=== PATIENT | female | born 1975 | race Caucasian/White ===

== ENCOUNTER → 2017-03-24 | Outpatient (CLI) | payer BC ==
--- NOTE | 2017-03-27 14:58 | KCIC ---
DATE: 03/24/2017 EXAM: MAMMO KARL SCREENING BILATERAL HISTORY: Screening COMPARISON: None FINDINGS: Breast Density: HETERO The breast parenchyma Is heterogeneiously dense, which could reduce sensitivity of mammography. Breast parenchyma level C. A dominant mass or suspect calcifications is not seen in either breast. There is a small nodule in the upper and outer right breast compatible with an intramammary lymph node.. In the left breast there is a possible developing nodule. No definite abnormality is seen on the karl images in the CC plane but a possible nodule is seen superiorly on the MLO view. The finding probably reflects a fibrous ridge but a coned compression MLO view and an ML view are suggested for additional evaluation IMPRESSION: Possible developing nodule left breast. Additional imaging suggested as outlined above BI-RADS CATEGORY: 0 INCOMPLETE: NEED ADDITIONAL IMAGING EVAULATION AND/OR PRIOR MAMMOGRAMS FOR COMPARISON RECOMMENDED FOLLOW-UP: ADD ADDITIONAL IMAGING PQRS compliance statement: Patient information was entered into a reminder system with a target due date soon for the next mammogram. Mammography is a sensitive method for finding small breast cancers, but it does not detect them all and is not a substitute for careful clinical examination. A negative mammogram does not negate a clinically suspicious finding and should not result in delay in biopsying a clinically suspicious abnormality. "Our facility is accredited by the [employer] Mammography [employer]."
== END | disposition home or self-care (01) ==
LOC: KCIC MAMMO 14:44
PROVIDERS: ATTEND Specialist
DX: Z12.31 Encounter for screening mammogram for malignant neoplasm of breast (principal)
CPT/HCPCS: 77063; G0202; 77067

== ENCOUNTER → 2020-01-07 | Outpatient (CLI) | payer BC ==
--- NOTE | 2020-01-07 12:11 | KCIC ---
EXAM: Bilateral digital screening mammogram with tomosynthesis. HISTORY: 44-year-old female presents for screening mammography. TECHNIQUE: Full-field digital craniocaudal and mediolateral oblique 2D and 3D tomosynthesis images of both breasts are obtained for evaluation. Computer aided detection with [employer] software version 9.3 was applied. COMPARISON: 04/11/2017 BREAST PARENCHYMAL DENSITY: Level D - Extremely dense. FINDINGS: There is no new suspicious mass, microcalcification or region of architectural distortion. There is stable areas of benign asymmetry within the anterior inferior left breast and lateral right breast. IMPRESSION: BI-RADS Category 2: Benign finding(s). RECOMMENDATION: Annual mammography is recommended. If your mammogram demonstrates that you have dense breast tissue, which could hide abnormalities, and if you have other risk factors for breast cancer that have been identified, you might benefit from supplemental screening tests that may be suggested by your ordering physician. Dense breast tissue, in and of itself, is a relatively common condition. This information is not provided to cause undue concern, but rather to raise your awareness and to promote discussion with your physician regarding the presence of other risk factors, in addition to dense breast tissue. A report of your mammography results will be sent to you and your physician. You should contact your physician if you have any questions or concerns regarding this report. Mammography is a sensitive method for finding small breast cancers, but it does not detect them all and is not a substitute for careful clinical examination. A negative mammogram does not negate a clinically suspicious finding and should not result in delay in biopsying a clinically suspicious abnormality. PQRS compliance statement - Patient information was entered into a reminder system with a target due date for the next mammogram. "Our facility is accredited by the [employer]ammography [employer]." Electronically signed by: Juliana Troo MD (01/07/2020 12:08 PM) [email or web address]
== END | disposition home or self-care (01) ==
LOC: KCIC MAMMO 09:50
PROVIDERS: ATTEND Internal Medicine
DX: Z12.31 Encounter for screening mammogram for malignant neoplasm of breast (principal)
CPT/HCPCS: 77063; 77067

== ENCOUNTER → 2021-01-11 | Outpatient (CLI) | payer BC ==
--- NOTE | 2021-01-11 13:05 | KCIC ---
Bilateral digital screening mammograms with 3-D tomosynthesis: Reason for examination: Routine screening. Comparison is made to previous studies dated 01/07/2020 and 03/24/2017. Bilateral mammograms in CC and oblique projections were obtained with 2-D imaging and 3-D tomosynthes is imaging on a Siemens Inspiration unit and reviewed on the workstation. Interpretation was made terrence hameed the benefit of CAD. The skin and nipples show no abnormalities. No abnormal axillary lymph nodes are seen. The breast par enchyma is extremely dense. (Breast density: Category D.) There continue to be small nodules at the 9 :00 C and 8:00 B positions in the right breast laterally which probably represents intramammary lymph nodes. There are no new dominant masses, suspicious calcifications or architectural distortion. Impression: No evidence of malignancy. Recommend routine screening. Your patient's mammogram demonstrates that she has dense breast tissue (breast density category C or D), which could hide abnormalities, and if she has other risk factors for breast cancer that have bee n identified, she might benefit from supplemental screening tests that may be suggested by you as her ordering physician. Dense breast tissue, in and of itself, is a relatively common condition. Therefo re, this information is not provided to cause undue concern, but rather to raise your awareness and t o promote discussion with your patient regarding the presence of other risk factors, in addition to d ense breast tissue. Your patient's mammography results will be sent to her. BI-RAD Category 2: Benign. "Our facility is accredited by the [employer] Mammography [employer]." This patient's information has been entered into a reminder system for the patient to be notified wit h the results of her examination and a target date for the next mammogram. Electronically signed by: Tierra Parekh MD (01/11/2021 1:03 PM) [email or web address]
== END ==
LOC: KCIC MAMMO 10:52
PROVIDERS: ATTEND Internal Medicine
DX: Z12.31 Encounter for screening mammogram for malignant neoplasm of breast (principal)
CPT/HCPCS: 77063; 77067